=== PATIENT | male | born 1985 | race Caucasian/White ===

== ENCOUNTER 2016-04-15 21:07 | Emergency (ER) | payer SELFPAY ==
--- NOTE | 2016-04-15 21:32 | ED ---
Rahul Greene Karl, scribed for Juna Issa MD on 04/15/16 at 2114 . Substance Abuse/Use - HPI Summary HPI Summary: Pt is a 30 y/o male that was BIBA to the ED after overdosing on heroin at approx 20:30 tonight. Per EMS, pt was found "unresponsive" on the floor of his room by his roommate who called EMS. Pt was given 4mg nasal narcan on scene [employer]. Pt reported "some pain" and stated that he intravenously took "plain heroin " earlier tonight. Pt stated that he does heroin "every once in a while." - History Of Current Complaint Stated Complaint: OVERDOSE Time Seen by Provider: 04/15/16 21:08 Hx Obtained From: Patient, EMS Onset/Duration of Drug/ETOH Abuse: Minutes Ingestion History: Type/Name Of Drug - heroin Overdose Characteristics: IV Timing Of Abuse: Binge Use Severity Initially: Severe Severity Currently: Mild - Allergies/Home Medications Allergies/Adverse Reactions: Allergies Allergy/AdvReac Type Severity Reaction Status Date / Time No Known Allergies Allergy Verified 02/21/16 12:45 PMH/Surg Hx/FS Hx/Imm Hx Endocrine/Hematology History: Denies: Hx Diabetes, Hx Thyroid Disease Cardiovascular History: Denies: Hx Hypertension Respiratory History: Denies: Hx Asthma, Hx Chronic Obstructive Pulmonary Disease (COPD) GI History: Denies: Hx Ulcer Infectious Disease History: Denies: Hx Hepatitis, Hx Human Immunodeficiency Virus (HIV) - Family History Known Family History: Negative: Blood Disorder - Social History Alcohol Use: None Substance Use Type: Reports: Heroin, Marijuana Substance Use Comment - Amount & Last Used: Last marijuana use 3 weeks ago Smoking Status (MU): Light Every Day Tobacco Smoker Review of Systems Constitutional: Other - heroin overdose Eyes: Negative ENT: Negative Cardiovascular: Negative Respiratory: Negative Gastrointestinal: Negative Genitourinary: Negative Musculoskeletal: Negative Skin: Negative Neurological: Negative Psychological: Normal All Other Systems Reviewed And Are Negative: Yes Physical Exam Triage Information Reviewed: Yes Vital Signs On Initial Exam: Initial Vitals Temp Pulse Resp BP Pulse Ox 97.3 F 98 12 122/80 91 04/15/16 21:10 04/15/16 21:10 04/15/16 21:10 04/15/16 21:10 04/15/16 21:10 Vital Signs Reviewed: Yes Appearance: Positive: No Pain Distress Skin: Positive: Warm Head/Face: Positive: Normal Head/Face Inspection Eyes: Positive: IRENE ENT: Positive: Hearing grossly normal Neck: Positive: Supple Respiratory/Lung Sounds: Positive: Clear to Auscultation, Breath Sounds Present Cardiovascular: Positive: Normal Abdomen Description: Positive: Nontender, Soft Bowel Sounds: Positive: Present Musculoskeletal: Positive: Strength/ROM Intact Neurological: Positive: Sensory/Motor Intact, Alert, Oriented to Person Place, Time, Normal Gait Diagnostics - Vital Signs Vital Signs Temp Pulse Resp BP Pulse Ox 04/15/16 21:10 97.3 F 98 12 122/80 91 - Laboratory Lab Statement: Any lab studies that have been ordered have been reviewed, and results considered in the medical decision making process. - EKG 21:06 EKG Interpretation: NSR at 98 bpm, No STEMI Re-Evaluation - Re-Evaluation First Eval Change: Improved Course/Dx - Diagnoses Provider Diagnoses: Heroin overdose Discharge - Discharge Plan Condition: Improved Disposition: HOME Patient Education Materials: Narcotic Abuse (ED), Opioid Overdose (ED) Referrals: No Primary Care Phys,NOPCP [Primary Care Provider] - Additional Instructions: Please follow up with your primary care provider and refrain from using intravenous drugs. Return to the emergency department for changing or worsening symptoms. The documentation as recorded by the Rahul bhat Karl accurately reflects the service I personally performed and the decisions made by , Juan Issa MD.
[2016-04-15] MEDS ORDERED: Ondansetron ODT TAB* 4 MG PO ONE (22:12)
[2016-04-16 01:09] VITALS: BP 100/67
== END 2016-04-16 01:11 | disposition home or self-care (01) ==
LOC: ED 21:07
DX: T40.1X1A Poisoning by heroin, accidental (unintentional), initial encounter (principal); Y92.9 Unspecified place or not applicable; F17.210 Nicotine dependence, cigarettes, uncomplicated
CPT/HCPCS: 93005; 99283; A9270-GY

== ENCOUNTER 2016-05-31 00:35 | Emergency (ER) | payer SELFPAY ==
[2016-05-31 00:44] VITALS: BP 127/88
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
[2016-05-31] MEDS ORDERED: oxyCODONE/Acetamin 5/325 MG* TAB PO ONE (02:26)
--- NOTE | 2016-05-31 06:38 | RAD ---
INDICATION: Left knee injury. History of foreign body COMPARISON: None TECHNIQUE: AP, lateral, and oblique views were obtained. FINDINGS: There are no acute bony findings. The knee articulates normally. There is minor osteoarthritic change with lateral and patellofemoral joint space compartments. There is no joint effusion. There is a metallic density foreign body in the lateral soft tissues which reportedly represents an injury as a child. IMPRESSION: MINOR OSTEOARTHRITIS. NO ACUTE FINDINGS.
--- NOTE | 2016-07-24 22:17 | ED ---
Rahul Greene Karl, scribed for Christ Fletcher on 05/31/16 at 0243 . Progress - Progress Note Progress Note: Pt XR did not reveal any fracture. Pt received medication for pain. Course/Dx - Course Course Of Treatment: Patient sent for xray. Pulses intact bilaterally. Denies numbness or tingling in lower extremities. Given crutches and knee brace. Follow up with Dr. Heart next week. Ibuprofen 600mg three times daily for pain. - Diagnoses Provider Diagnoses: Contusion of knee, left The documentation as recorded by the Rahul bhat Karl accurately reflects the service I personally performed and the decisions made by Justine bonner Emmanuel.
== END 2016-05-31 02:54 | disposition home or self-care (01) ==
LOC: ED 00:35
DX: S80.02XA Contusion of left knee, initial encounter (principal); Z72.0 Tobacco use; V03.90XA Pedestrian on foot injured in collision with car, pick-up truck or van, unspecified whether traffic or nontraffic accident, initial encounter; Y92.9 Unspecified place or not applicable
CPT/HCPCS: 99282; A9270-GY